=== PATIENT | female | born 1950 | race Caucasian/White ===

== ENCOUNTER 2021-01-12 15:43 | Emergency (ER) | payer OTHER, SELFPAY ==
--- NOTE | ~2021-01-12 | XR_ITS ---
XR chest 2V DATE: 01/12/2021 16:15 INDICATION: Cough TECHNIQUE: 2 views COMPARISON: 04/15/2008 two-view chest FINDINGS: Normal heart size. There is aortic arch calcification and mild aortic unfolding. No hilar o r mediastinal enlargement. No pulmonary infiltrate or consolidation, pleural effusion or pulmonary vascular congestion or pneumo thorax. Diffuse osteopenia. IMPRESSION: No active cardiopulmonary disease Aortic atherosclerosis Diffuse osteopenia Reviewed, dictated and finalized at location A.
[2021-01-12 15:57] VITALS: BP 105/51; PULSE 91; RESP 18; TEMP 36.8; O2SAT 98
--- NOTE | 2021-01-12 16:38 | ED.URI ---
HPI - URI/Sore Throat General Chief Complaint: Upper Respiratory Infection Stated Complaint: cough Time Seen by Provider: 01/12/21 16:38 Source: patient Mode of arrival: ambulatory Limitations: no limitations History of Present Illness HPI Narrative: Marija Olivera is a 70 yo female with a PMH of hypertension, diabetes, COPD, [facility] of a cough that wakes her up at night and makes her feel short of breath and she has had spasms with coughing. She has gone to the hospital after being there for a week with no specific diagnosis. She has follow-up with cardiology on Friday and her GP on Friday. Her blood sugar runs 116-120. Denies diagnosis of costochondritis for upper back pain that really bothers her with coughing Related Data Allergies Allergy/AdvReac Type Severity Reaction Status Date / Time No Known Allergies Allergy Unverified 05/12/14 15:23 Review of Systems Review of Systems: CONSTITUTIONAL: Denies fever, chills, sweats. EYES: Denies visual changes, redness, discharge. ENT: Denies rhinorrhea, congestion, sore throat, otalgia. CARDIOVASCULAR: Denies chest pain, palpitations, edema. RESPIRATORY: Denies dyspnea, wheezing, has spasm-like cough with shortness of breath GASTROINTESTINAL: Denies abdominal pain, nausea, vomiting, diarrhea. GENITOURINARY: Denies dysuria, hematuria, abnormal discharge SKIN: Denies rash or itching. NEUROLOGIC: Denies numbness, or focal weakness. PSYCHIATRIC: Denies anxiety or depression. [facility] Past Medical History Medical History COPD (chronic obstructive pulmonary disease) Diabetes HTN (hypertension) Family History Family History (Updated 01/12/21 @ 16:48 by Haleigh Dunn CNP) Other Diabetes mellitus Social History Social History (Updated 01/12/21 @ 16:48 by Haleigh Dunn CNP) Smoking status: Former smoker Alcohol intake: former Comments At time of signature, I agree with nursing past medical, surgical, social and family history. There is no relevant family history pertinent to the presenting complaint. Exam Narrative: GENERAL: This is a well-nourished, well-developed patient, in moderate distress. HEAD: normocephalic, atraumatic. EYES: Sclera clear/white. Vision is grossly intact. EARS: External ears normal, . Hearing grossly intact. NOSE: External nose normal without nasal discharge, nares without redness, no rhinorrhea. THROAT: Mucous membranes moist, voice somewhat raspy NECK: Neck supple, non-tender CARDIOVASCULAR: Regular rate and rhythm without murmurs, gallops, or rubs. RESPIRATORY: Clear to auscultation. Breath sounds equal bilaterally. No wheezes, rales, or rhonchi. GASTROINTESTINAL: Abdomen soft, non-tender, SKIN: warm, intact with no suspicious lesions or rash, good texture and turgor. NEURO: awake, alert, and oriented to person, place and time. There were no obvious focal neurologic abnormalities. Steady gait EXTREMITIES: Normal range of motion. BACK: Nontender without deformity Course Course Emergency Course: Patient comes to [facility] with cough, she has recently left the hospital after being there for a week, she states she takes her medication as ordered Chest x-ray showed no active cardiopulmonary disease, heart is normal size, there is aortic arch calcification and mild aortic unfolding no pulmonary infiltrate or consolidation or pleural effusion Patient is already on Vicodin, inhalers, Tessalon Perles and she states that she still has problems controlling her cough. Given Cheratussin, muscle relaxant for back pain that she states Vicodin does not cover. Follow-up with cardiology and general practitioner on Friday or Friday Vital Signs Vital signs: Vital Signs Temperature 98.3 F 01/12/21 15:57 Pulse Rate 91 01/12/21 15:57 Respiratory Rate 18 01/12/21 15:57 Blood Pressure 105/51 L 01/12/21 15:57 Pulse Oximetry 98 01/12/21 15:57 [place]
== END 2021-01-12 17:03 | disposition home or self-care (01) ==
PROVIDERS: Emergency Provider Nurse Practitioner; PCP Family Medicine
DX: R05 Cough (principal); J44.9 Chronic obstructive pulmonary disease, unspecified; I10 Essential (primary) hypertension; E11.9 Type 2 diabetes mellitus without complications; Z87.891 Personal history of nicotine dependence
CPT/HCPCS: 71046; 99213; G0463

== ENCOUNTER 2021-03-15 16:38 | Emergency (ER) | payer OTHER, SELFPAY ==
--- NOTE | ~2021-03-15 | XR_ITS ---
EXAMINATION: XR tibia fibula LT 2V DATE: 03/15/2021 17:05 INDICATION: Mid left scott pain post fall TECHNIQUE: Anteroposterior and lateral views of the left tibia and fibula were obtained. COMPARISON: Left knee radiographs dated 01/17/17 FINDINGS: Bone alignment is normal. No fracture. Tricompartmental osteoarthritis at the left knee, severe in th e medial compartment where there is remodeling of the articular surface of the medial tibial plateau. Small plantar calcaneal spur. Soft tissue swelling with subcutaneous edema at both the proximal and distal calf. IMPRESSION: 1. No acute osseous abnormality. 2. Tricompartmental osteoarthritis at the left knee, severe at the medial compartment. Reviewed, dictated and finalized at location A. [employer] IMPRESSION: 1. No acute osseous abnormality. 2. Tricompartmental osteoarthritis at the left knee, severe at the medial neetu rtment.
[2021-03-15 16:49] VITALS: BP 143/64; PULSE 88; RESP 16; TEMP 36.8; O2SAT 100
--- NOTE | 2021-03-15 16:49 | ED.LOWEXIN ---
HPI - Extremity Injury (Lower) General Chief Complaint: Extremity Injury, Lower Stated Complaint: Left Knee Pain Time Seen by Provider: 03/15/21 16:49 Source: patient, RN notes reviewed and old records reviewed Mode of arrival: ambulatory Limitations: no limitations History of Present Illness HPI Narrative: 70-year-old female presents to the [facility] with complaints of left mid scott pain after tripping and falling onto her bilateral knees last night. States that she hit the mid left scott. No bruising, swelling, signs of infection. Walks with a cane. Has a history of severe osteoarthritis in her knees Related Data Home Medications Medication Instructions Recorded Confirmed amitriptyline 25 mg PO DAILY 03/15/21 03/15/21 [id number] 1 inh INHALATION DAILY 03/15/21 03/15/21 [Breztri Aerosphere] carvedilol 6.25 mg PO DAILY 03/15/21 03/15/21 clopidogrel 75 mg PO DAILY 03/15/21 03/15/21 empagliflozin [Jardiance] 25 mg PO DAILY 03/15/21 03/15/21 furosemide 20 mg PO DAILY 03/15/21 03/15/21 gabapentin 100 mg PO DAILY 03/15/21 03/15/21 metformin 1,000 mg PO DAILY 03/15/21 03/15/21 rosuvastatin 20 mg PO DAILY 03/15/21 03/15/21 Allergies Allergy/AdvReac Type Severity Reaction Status Date / Time No Known Allergies Allergy Unverified 03/15/21 16:48 Review of Systems Review of Systems: All systems reviewed & are unremarkable except as noted in HPI and below Constitutional: Constitutional: Reports no additional constitutional complaints, Denies chills and Denies fever(s) Eyes: Eyes: Reports no additional eye complaints ENT: Reports system reviewed and no additional complaints, except as documented Cardiovascular: Cardiovascular: Reports no additional cardiovascular complaints Respiratory: Respiratory: Reports no additional respiratory complaints Musculoskeletal: Musculoskeletal: Reports as per HPI Comments: Mid left scott pain Integumentary/Breasts: Skin/Breast: Reports system reviewed and no additional complaints, except as docu and Denies rash Neurologic: Reports system reviewed and no additional complaints, except as documented Psychiatric: Psychiatric: Reports no additional psychiatric complaints Allergic/Immunologic: Allergic/Immunologic: Reports no additional allergic/immunologic complaints PMF[facility] Past Medical History Medical History COPD (chronic obstructive pulmonary disease) Diabetes HTN (hypertension) Family History Family History Other Diabetes mellitus Social History Social History Smoking status: Former smoker Alcohol intake: former Comments At the time of my signature, I reviewed and agree with the nursing past medical, surgical, social, and family history. There is no relevant family history pertinent to the patient complaint. Exam Const: General: healthy appearing, no acute distress and alert Nutritional Appearance: well nourished Orientation/consciousness: patient oriented x3 Limitations: no limitations HENMT: Head: normal to inspection Eyes: Pupils: Equal, round and reactive pupils present Neck: Neck: normal visual inspection, no lymphadenopathy and no meningeal signs Chest: Chest palpation & inspection: normal inspection of the chest Resp: Effort & Inspection: normal respiratory effort Cardio: Rate: regular rate : General: Yes no CVA tenderness Back/Spine/Pelvis: Back: no CVA tenderness Skin: General skin exam: normal color Neuro: General: patient oriented x3, moves all extremities, no meningeal signs and no focal motor deficits Speech: normal speech Gait exam (Neuro): Normal gait present (Walks with a shuffling gait, patient states is normal due to her arthritis ) Extrem: General: normal to inspection Upper/lower leg/hip images: 1. Reports pain without swelling, bruising or signs of
[2021-03-15 16:51] VITALS: BP 143/64; PULSE 88; RESP 16; TEMP 36.8; O2SAT 100
== END 2021-03-15 17:26 | disposition home or self-care (01) ==
PROVIDERS: Emergency Provider Nurse Practitioner; PCP Family Medicine
DX: M79.662 Pain in left lower leg (principal); M17.12 Unilateral primary osteoarthritis, left knee; J44.9 Chronic obstructive pulmonary disease, unspecified; E11.9 Type 2 diabetes mellitus without complications; I10 Essential (primary) hypertension
CPT/HCPCS: 73590; 99213; G0463

== ENCOUNTER 2021-07-23 17:53 | Emergency (ER) | payer OTHER, SELFPAY ==
--- NOTE | ~2021-07-23 | XR_ITS ---
XR knee LT 3V DATE: 07/23/2021 18:16 INDICATION: Generalized left knee pain following a fall 3 days ago TECHNIQUE: AP, lateral, bilateral oblique views COMPARISON: 03/15/2021 left tibia and fibula FINDINGS: Diffuse osteopenia. There is severe osteoarthritic change at the medial and patellofemoral compartments. Small suprapatel lar knee joint effusion. No fracture or dislocation, periosteal reaction or bone destruction or radiopaque intra-articular loo se body. Very subtle chondrocalcinosis. Femoral artery calcification. IMPRESSION: Osteopenia Severe osteoarthritis at medial and patellofemoral compartments Small joint effusion Subtle chondrocalcinosis Reviewed, dictated and finalized at location A.
[2021-07-23 18:02] VITALS: BP 147/85; PULSE 97; RESP 16; TEMP 36.2; O2SAT 99
--- NOTE | 2021-07-23 18:03 | ED.LOWEXIN ---
HPI - Extremity Injury (Lower) General Chief Complaint: Extremity Injury, Lower Stated Complaint: Left Knee Pain Time Seen by Provider: 07/23/21 18:03 Source: patient, RN notes reviewed and old records reviewed Mode of arrival: ambulatory Limitations: no limitations History of Present Illness HPI Narrative: 71 yo female presents to the [facility] with complaints of left knee pain and swelling since Friday. Patient reports that she tripped over her dog and landed on her knee. Reports taking Tylenol and ibuprofen with no relief. Has a history of severe arthritis. Denies hitting head. No back or hip pain. MD complaint: knee injury Related Data Home Medications Medication Instructions Recorded Confirmed amitriptyline 25 mg PO DAILY 03/15/21 07/23/21 [id number] 1 inh INHALATION DAILY 03/15/21 07/23/21 [Breztri Aerosphere] carvedilol 6.25 mg PO DAILY 03/15/21 07/23/21 clopidogrel 75 mg PO DAILY 03/15/21 07/23/21 empagliflozin [Jardiance] 25 mg PO DAILY 03/15/21 07/23/21 furosemide 20 mg PO DAILY 03/15/21 07/23/21 gabapentin 100 mg PO DAILY 03/15/21 07/23/21 metformin 1,000 mg PO DAILY 03/15/21 07/23/21 rosuvastatin 20 mg PO DAILY 03/15/21 07/23/21 Allergies Allergy/AdvReac Type Severity Reaction Status Date / Time No Known Allergies Allergy Verified 07/23/21 17:56 Review of Systems Review of Systems: All systems reviewed & are unremarkable except as noted in HPI and below Constitutional: Constitutional: Reports no additional constitutional complaints Eyes: Eyes: Reports no additional eye complaints ENT: Reports system reviewed and no additional complaints, except as documented Cardiovascular: Cardiovascular: Reports no additional cardiovascular complaints Respiratory: Respiratory: Reports no additional respiratory complaints Gastrointestinal: Gastrointestinal: Reports no additional gastrointestinal complaints Musculoskeletal: Musculoskeletal: Reports as per HPI, Denies back pain, Reports arthralgias (Left knee) and Reports joint swelling (Left only) Neurologic: Reports system reviewed and no additional complaints, except as documented Psychiatric: Psychiatric: Reports no additional psychiatric complaints Allergic/Immunologic: Allergic/Immunologic: Reports no additional allergic/immunologic complaints PMFSH Past Medical History Medical History COPD (chronic obstructive pulmonary disease) Diabetes HTN (hypertension) Family History Family History Other Diabetes mellitus Social History Social History Smoking status: Former smoker Alcohol intake: former Comments At the time of my signature, I reviewed and agree with the nursing past medical, surgical, social, and family history. There is no relevant family history pertinent to the patient complaint. Exam Const: General: no acute distress, alert and ill appearing chronically Nutritional Appearance: well nourished Orientation/consciousness: patient oriented x3 Limitations: no limitations HENMT: Head: normal to inspection Ears: external ears normal Eyes: Pupils: Equal, round and reactive pupils present Neck: Neck: normal visual inspection, no lymphadenopathy and no meningeal signs Chest: Chest palpation & inspection: normal inspection of the chest Resp: Effort & Inspection: normal respiratory effort Cardio: Rate: regular rate Rhythm: regular rhythm Back/Spine/Pelvis: Back: no CVA tenderness Cervical Spine: normal cervical lordosis and No cervical muscular tenderness Thoracic/Lumbar Spine: No thoracic spinal tenderness and No lumbar spinal tenderness Skin: General skin exam: normal color Neuro: General: patient oriented x3, moves all extremities, no meningeal signs and no focal motor deficits Cranial nerves: Yes Equal, round and reactive pupils presen
[2021-07-23 18:06] VITALS: BP 147/85; PULSE 97; RESP 16; TEMP 36.2; O2SAT 99
== END 2021-07-23 18:42 | disposition home or self-care (01) ==
PROVIDERS: Emergency Provider Nurse Practitioner; PCP Family Medicine
DX: M25.462 Effusion, left knee (principal); M17.12 Unilateral primary osteoarthritis, left knee; Z87.891 Personal history of nicotine dependence; J44.9 Chronic obstructive pulmonary disease, unspecified; E11.9 Type 2 diabetes mellitus without complications; I10 Essential (primary) hypertension
CPT/HCPCS: 73562; 99213; G0463

== ENCOUNTER 2022-03-01 14:15 | Emergency (ER) | payer OTHER, SELFPAY ==
--- NOTE | ~2022-03-01 | XR_ITS ---
EXAMINATION: XR chest 2V DATE: 03/01/2022 14:55 INDICATION: Bilateral mid back pain. Cough. TECHNIQUE: Frontal and lateral views of the chest were obtained. COMPARISON: Chest 2 views 01/12/2021 FINDINGS: The chest demonstrates clear lungs without pneumonia, pleural effusion, or pneumothorax. Th e heart size is normal. IMPRESSION: 1. No acute cardiopulmonary disease. Reviewed, dictated and finalized at location A.
[2022-03-01 14:24] VITALS: BP 183/81; PULSE 93; RESP 16; TEMP 36.5; O2SAT 99
[2022-03-01 14:25] VITALS: BP 183/81; PULSE 93; RESP 16; TEMP 36.5; O2SAT 99
--- NOTE | 2022-03-01 14:44 | ED.BACK ---
HPI - Back Pain/Injury General Chief Complaint: Back Pain/Injury Stated Complaint: flank pain Time Seen by Provider: 03/01/22 14:28 Source: patient Mode of arrival: ambulatory Limitations: no limitations History of Present Illness HPI Narrative: Patient presents today complaining of bilateral mid back pain, right greater than left. Symptoms began yesterday and have worsened since then. She currently rates her pain 10/10 and describes the pain as sharp. Pain increases with movement or coughing. She has been taking Excedrin without relief. Denies cough or sick symptoms, shortness of breath, chest pain, abdominal pain. History of COPD Related Data Home Medications Medication Instructions Recorded Confirmed amitriptyline 25 mg tablet 25 mg PO DAILY 03/15/21 03/01/22 budesonide 160 mcg-glycopyr 9 1 inh inhalation DAILY 03/15/21 03/01/22 mcg-formot 4.8 mcg/actuation HFA inhaler (Breztri Aerosphere) carvedilol 6.25 mg tablet 6.25 mg PO DAILY 03/15/21 03/01/22 clopidogrel 75 mg tablet 75 mg PO DAILY 03/15/21 03/01/22 empagliflozin 25 mg tablet 25 mg PO DAILY 03/15/21 03/01/22 (Jardiance) furosemide 20 mg tablet 20 mg PO DAILY 03/15/21 03/01/22 gabapentin 100 mg capsule 100 mg PO DAILY 03/15/21 03/01/22 metformin 1,000 mg tablet 1,000 mg PO DAILY 03/15/21 03/01/22 rosuvastatin 20 mg tablet 20 mg PO DAILY 03/15/21 03/01/22 omeprazole 40 mg capsule,delayed 40 mg DIRECTED 03/01/22 03/01/22 release Allergies Allergy/AdvReac Type Severity Reaction Status Date / Time No Known Allergies Allergy Verified 07/23/21 17:56 Review of Systems Review of Systems: CONSTITUTIONAL: Denies body aches, fever, chills, or sweats. EYES: Denies visual changes, redness, or discharge. ENT: Denies rhinorrhea, congestion, sore throat, or otalgia. CARDIOVASCULAR: Denies chest pain, palpitations, or edema. RESPIRATORY: Denies cough or dyspnea. GASTROINTESTINAL: Denies abdominal pain, nausea, vomiting, or diarrhea. GENITOURINARY: Denies dysuria or hematuria. SKIN: Denies rash, itching, or wounds. MUSCULOSKELETAL: + midback pain NEUROLOGIC: Denies headache, numbness, tingling, or weakness. PSYCH: Denies depression or anxiety. [facility] Past Medical History Medical History COPD (chronic obstructive pulmonary disease) Diabetes HTN (hypertension) Family History Family History Other Diabetes mellitus Social History Social History Smoking status: Former smoker Alcohol intake: former Comments At time of signature, I have reviewed and agree with nursing past medical, surgical, social and family history unless otherwise noted. Please see nursing chart for further information. There is no relevant family history pertinent to the presenting complaint Exam Narrative: GENERAL: Well-appearing, well-nourished, and in no acute distress. HEAD: Normocephalic, atraumatic. EYES: EOMI. No redness or drainage. Conjunctivae normal. ENT: Mucous membranes pink and moist. NECK: Normal AROM. CHEST: No respiratory distress. Clear to auscultation. HEART: Regular rate and rhythm. No murmur appreciated. Normal peripheral pulses. MUSCULOSKELETAL: No bony tenderness of the spine. Patient has bilateral lower thoracic paraspinal muscle tenderness to palpation, right greater than left , increasing with movement. EXTREMITIES: Normal range of motion. No edema. SKIN: Warm, dry, no rash. Capillary refill normal. Normal skin turgor. NEURO: No focal deficits. Alert and oriented x3. Gait steady. PSYCH: Normal affect. No signs of depression or anxiety. Course Course Level of Care: Express Care Visit Vital Signs Vital signs: Vital Signs Temperature 97.7 F 03/01/22 14:24 Pulse Rate 93 03/01/22 14:24 Respiratory Rate 16 03/01/22 14:24 Blood Pressure 183/8
== END 2022-03-01 15:31 | disposition home or self-care (01) ==
PROVIDERS: Emergency Provider Nurse Practitioner; PCP Family Medicine
DX: M62.830 Muscle spasm of back (principal); J44.9 Chronic obstructive pulmonary disease, unspecified; E11.9 Type 2 diabetes mellitus without complications; I10 Essential (primary) hypertension; Z87.891 Personal history of nicotine dependence
CPT/HCPCS: 71046; 99213; G0463